=== PATIENT | female | born 1975 | race Caucasian/White ===

== ENCOUNTER 2022-01-31 15:43 | Outpatient (CLI) | payer OTHER ==
[~2022-01-31 15:43] MED LIST: MOTRIN800 MG PO; SEPTRA DS TABLE1 TAB PO
== END 2022-01-31 15:53 | disposition home or self-care (01) ==
LOC: RAD 15:43
PROVIDERS: ATTEND General Practice
DX: J06.9 Acute upper respiratory infection, unspecified (principal)